=== PATIENT | female | born 1935 | race Caucasian/White ===

== ENCOUNTER 2019-05-25 20:13 | Emergency (ER) | payer MEDICARE ==
[~2019-05-25] VITALS: Ht 160 cm; Wt 85.3 kg
[2019-05-25] MEDS ORDERED: ASPIRIN CHEWABL81 MG PO (20:24)
== END 2019-05-25 22:12 | disposition home or self-care (01) ==
LOC: ED 20:13
DX: S63.501A Unspecified sprain of right wrist, initial encounter (principal); M54.2 Cervicalgia; Z88.0 Allergy status to penicillin; Z79.82 Long term (current) use of aspirin; W18.09XA Striking against other object with subsequent fall, initial encounter; Y93.89 Activity, other specified; Y92.480 Sidewalk as the place of occurrence of the external cause; Y99.8 Other external cause status